=== PATIENT | male | born 1960 | race Caucasian/White ===

== ENCOUNTER 2024-07-26 23:27 | Emergency (ER) | payer MEDICARE ==
[~2024-07-26] VITALS: Ht 185.4 cm; Wt 109.0 kg
[2024-07-26 23:30] VITALS: BP 126/78; PULSE 100; RESP 18; TEMP 98.1; O2SAT 97
[2024-07-27 02:08] LABS: POTASSIUM 3.7 mEq/L (3.5-5.1)
[2024-07-27 02:09] LABS: CALCIUM 9.5 mg/dL (8.7-10.4)
[2024-07-27 02:14] LABS: CREATININE 1.3 mg/dL (0.6-1.3)
[2024-07-27 02:16] LABS: AMMONIA < 17 uMol/L (<32)
[2024-07-27 02:28] LABS: BASOPHILS % 1.4 % (0.0-2.0); EOSINOPHILS % 1.3 % (0.0-5.0); HEMATOCRIT. 43.5 % (42.0-52.0); HEMOGLOBIN. 14.3 g/dL (14.0-18.0); LYMPHOCYTES % 20.3 % (20.0-50.0); MEAN CORPUSCULAR HEMOGLOBIN 31.7 pg (28.0-32.0); MEAN CORPUSCULAR HGB CONC 32.8 g/dL (31.0-37.0); MEAN CORPUSCULAR VOLUME 96.7 fL (80.0-94.0); MEAN PLATELET VOLUME 9.2 fl (7.4-10.4); MONOCYTES % 8.5 % (2.0-8.0); NEUTROPHILS % 68.5 % (40.0-76.0); PLATELET 315 x1000/uL (130-400); RED CELL DISTRIBUTION WIDTH 13.9 % (11.6-14.6); WHITE BLOOD COUNT 6.5 x1000/uL (4.5-11.0)
== END 2024-07-27 08:21 | disposition home or self-care (01) ==
LOC: ER 23:27
DX: F10.129 Alcohol abuse with intoxication, unspecified (principal); R41.82 Altered mental status, unspecified; Z86.73 Personal history of transient ischemic attack (TIA), and cerebral infarction without residual deficits; Y90.8 Blood alcohol level of 240 mg/100 ml or more
CPT/HCPCS: 36415; 71045; 80048; 80320; 82140; 85025; 93005; 99285; G0480